=== PATIENT | male | born 1995 | race Caucasian/White ===

== ENCOUNTER 2018-05-19 11:14 | Emergency (ER) | payer OTHER ==
[~2018-05-19] VITALS: Ht 172.7 cm; Wt 79.5 kg
[2018-05-19 11:14] VITALS: BP 143/90
[2018-05-19] MEDS ORDERED: MUCI100L2 PO (11:19)
[2018-05-19] MEDS ORDERED: IBUP-1022 PO (12:13)
[2018-05-19] MEDS ORDERED: ZYRTTAB8 PO (12:13)
[2018-05-19] MEDS ORDERED: FLON1SPR NARES (12:13)
[2018-05-19] MEDS ORDERED: MUCI600T37 PO (12:13)
== END 2018-05-19 12:18 | disposition home or self-care (01) ==
LOC: M ED 11:14
DX: J20.9 Acute bronchitis, unspecified (principal); H65.02 Acute serous otitis media, left ear; Z87.891 Personal history of nicotine dependence

== ENCOUNTER 2018-11-08 19:00 | Emergency (ER) | payer OTHER ==
[~2018-11-08] VITALS: Ht 172.7 cm; Wt 77.3 kg
[~2018-11-08 19:00] MED LIST: FLON1SPR NARES; IBUP-1022 PO; MUCI100L2 PO; MUCI600T37 PO; ZYRTTAB8 PO
[2018-11-08] MEDS ORDERED: metroNIDAZOLE 500 MG in APPROPRIATE DILUENT 1 EA IV ONE (19:45)
[2018-11-08] MEDS ORDERED: AMPICILLIN SOD/SULBACTAM SOD 3 GM in D5W MINI-BAG PLUS 100 ML IV ONE (19:45)
[2018-11-08] MEDS ORDERED: BUPIVACAINE LIPOSOME/PF 1.3% 20ML VIAL (13.3MG/ML)(EXPAREL)(C9290 PER1MG) INFIL ONE (19:45)
[2018-11-08] MEDS ORDERED: FLAG500T PO (19:49)
[2018-11-08] MEDS ORDERED: NORCO 5/325MG TABLET (BULK FOR ED) PO ONE (21:15)
[2018-11-08 21:56] VITALS: BP 137/70
== END 2018-11-08 22:00 | disposition home or self-care (01) ==
LOC: M ED 19:00
DX: K08.89 Other specified disorders of teeth and supporting structures (principal); R22.0 Localized swelling, mass and lump, head; Z79.2 Long term (current) use of antibiotics
CPT/HCPCS: 64400; 96374; 96375; 99284; C9290